=== PATIENT | female | born 1995 | race Caucasian/White ===

== ENCOUNTER 2017-05-04 16:41 | Inpatient (IN) | END 2017-05-07 19:14 | disposition home or self-care (01) | DRG 775 | DX: O41.1230 Chorioamnionitis, third trimester, not applicable or unspecified (principal); O76 Abnormality in fetal heart rate and rhythm complicating labor and delivery; Z3A.38 38 weeks gestation of pregnancy; Z37.0 Single live birth; Z29.13 Encounter for prophylactic Rho(D) immune globulin ==